=== PATIENT | female | born 1940 | race Caucasian/White ===

== ENCOUNTER 2016-03-01 10:38 | Outpatient (CLI) | payer MEDICARE, OTHER | END 2016-03-01 10:39 | disposition home or self-care (01) | DX: Z12.31 Encounter for screening mammogram for malignant neoplasm of breast (principal) ==

== ENCOUNTER 2017-04-05 16:58 | Outpatient (CLI) | payer MEDICARE, OTHER | END 2017-04-05 23:59 | disposition EMS.NT | LOC: EMS 16:58 | PROVIDERS: ATTEND Surgery | DX: R55 Syncope and collapse (principal) ==

== ENCOUNTER 2019-07-15 04:40 | Outpatient (CLI) | payer MEDICARE, OTHER | END 2019-07-15 04:41 | disposition short-term general hospital (02) | LOC: EMS 04:40 | PROVIDERS: ATTEND Surgery | DX: R07.89 Other chest pain (principal) | CPT/HCPCS: A0425; A0427 ==

== ENCOUNTER 2020-07-11 03:30 | Outpatient (CLI) | payer MEDICARE, OTHER | END 2020-07-11 03:31 | disposition short-term general hospital (02) | LOC: EMS 03:30 | DX: R06.02 Shortness of breath (principal); R06.2 Wheezing | CPT/HCPCS: A0425; A0429 ==

== ENCOUNTER 2021-02-10 13:28 | Outpatient (CLI) | payer MEDICARE, OTHER | END 2021-02-10 13:29 | disposition short-term general hospital (02) | LOC: EMS 13:28 | DX: R55 Syncope and collapse (principal); S09.90XA Unspecified injury of head, initial encounter; W18.39XA Other fall on same level, initial encounter; Y92.000 Kitchen of unspecified non-institutional (private) residence as the place of occurrence of the external cause | CPT/HCPCS: A0425; A0429 ==

== ENCOUNTER 2021-04-08 12:53 | Outpatient (CLI) | payer MEDICARE, OTHER | END 2021-04-08 12:54 | disposition short-term general hospital (02) | LOC: EMS 12:53 | DX: R55 Syncope and collapse (principal); R42 Dizziness and giddiness | CPT/HCPCS: A0425; A0427 ==